=== PATIENT | male | born 1955 | race Caucasian/White ===

== ENCOUNTER 2021-01-03 12:13 | Emergency (ER) | payer OTHER ==
[~2021-01-03] VITALS: Ht 172.7 cm; Wt 77.1 kg
[~2021-01-03 12:13] MED LIST: ACET500 PO; Augmentin 875-1 EACH PO; CENTRUM SILVER1 EAC2 PO; DOXY100 PO; HYDR1TAB94 PO; METO25 PO
[2021-01-03 12:46] LABS: BASOPHILS ABSOLUTE AUTO 0.08 K/mm3 (0.00-0.23); BASOPHILS PERCENT AUTO 1 % (0-2); EOSINOPHILS ABSOLUTE AUTO 0.15 K/mm3 (0.00-0.68); EOSINOPHILS PERCENT AUTO 1 % (0-6); Hematocrit 39.2 % (37.0-53.0); Hemoglobin 13.1 g/dL (13.5-17.5); IMMATURE GRAN ABSOLUTE AUTO 0.05 K/mm3 (0.00-0.10); IMMATURE GRAN PERCENT AUTO 0 % (0-1); LYMPHOCYTES ABSOLUTE AUTO 2.78 K/mm3 (0.84-5.20); LYMPHOCYTES PERCENT AUTO 18 % (21-46); MONOCYTES ABSOLUTE AUTO 1.31 K/mm3 (0.16-1.47); MONOCYTES PERCENT AUTO 8 % (4-13); Mean Corpuscular HGB 30.4 pg (26.0-34.0); Mean Corpuscular HGB Conc 33.4 g/dL (31.5-36.5); Mean Corpuscular Volume 91 fL (80-100); Mean Platelet Volume 9.5 fL (9.1-12.4); NEUTROPHILS ABSOLUTE AUTO 11.19 K/mm3 (1.96-9.15); NEUTROPHILS PERCENT AUTO 72 % (41-73); Platelet Count 248 K/mm3 (150-400); RDW Coefficient Variation 13.2 % (11.7-14.2); RDW Standard Deviation 44.2 fL (35.1-46.3); Red Blood Cell Count 4.31 M/mm3 (4.30-5.90); White Blood Cell Count 15.56 K/mm3 (4.00-11.30)
[2021-01-03 13:04] LABS: Alanine Aminotransfer (ALT/SGP 45 U/L (12-78); Albumin, Blood 4.1 g/dL (3.4-5.0); Albumin/Globulin Ratio 0.9 (0.8-1.8); Alk Phos 133 U/L (50-136); Anion Gap 7 mmol/L (6-16); Aspartate Aminotrans (AST/SGOT 29 U/L (12-37); Bilirubin, Total 0.7 mg/dL (0.1-1.0); Blood Urea Nitrogen 25 mg/dL (8-24); Bun/Creatinine Ratio 21.6 (12.0-20.0); CO2, Blood 26 mmol/L (21-32); Calcium, Blood 9.3 mg/dL (8.5-10.1); Chloride, Blood 102 mmol/L (98-108); Creatinine, Blood 1.16 mg/dL (0.60-1.20); Globulin, Blood 4.7 g/dL (2.2-4.0); Glomerular Filtration Rate >60 (60-); Glucose, Blood 98 mg/dL (70-99); Potassium, Blood 3.6 mmol/L (3.5-5.5); Sodium, Blood 135 mmol/L (136-145); Total Protein, Blood 8.8 g/dL (6.4-8.2)
[2021-01-03] MEDS ORDERED: Lisinopril2.5 MG (14:41)
== END 2021-01-03 18:58 | disposition home or self-care (01) ==
LOC: ER 12:13
PROVIDERS: Emergency Medicine
DX: J98.11 Atelectasis (principal); F41.9 Anxiety disorder, unspecified; I10 Essential (primary) hypertension; Z86.73 Personal history of transient ischemic attack (TIA), and cerebral infarction without residual deficits; Z79.899 Other long term (current) drug therapy; Z87.891 Personal history of nicotine dependence
CPT/HCPCS: 36415; 71046; 71260; 80053; 84484; 85025; 93005; 93010; 99285-25; A9270; Q9967

== ENCOUNTER 2021-01-06 18:48 | Emergency (ER) | payer OTHER ==
[~2021-01-06] VITALS: Ht 170.2 cm; Wt 190.0 kg
[~2021-01-06 18:48] MED LIST changes: +Lisinopril2.5 MG
[2021-01-06] MEDS ORDERED: ARIP10 PO (19:42)
[2021-01-06] MEDS ORDERED: TRAZ50 PO (19:42)
== END 2021-01-06 20:34 | disposition home or self-care (01) ==
LOC: ER 18:48
DX: F41.0 Panic disorder [episodic paroxysmal anxiety] (principal); I10 Essential (primary) hypertension; Z79.899 Other long term (current) drug therapy; Z87.891 Personal history of nicotine dependence
CPT/HCPCS: 99283; A9270

== ENCOUNTER 2021-02-20 12:22 | Emergency (ER) | payer OTHER ==
[~2021-02-20] VITALS: Ht 175.3 cm; Wt 77.1 kg
[~2021-02-20 12:22] MED LIST changes: +ARIP10 PO; +TRAZ50 PO
== END 2021-02-20 16:04 | disposition home or self-care (01) ==
LOC: ER 12:22
DX: H57.89 Other specified disorders of eye and adnexa (principal); R20.8 Other disturbances of skin sensation; F31.9 Bipolar disorder, unspecified; I10 Essential (primary) hypertension; Z79.899 Other long term (current) drug therapy; Z87.891 Personal history of nicotine dependence
CPT/HCPCS: 99283

== ENCOUNTER 2021-05-03 14:59 | Emergency (ER) | payer OTHER ==
[~2021-05-03] VITALS: Ht 175.3 cm; Wt 77.1 kg
[2021-05-03 16:16] LABS: Alanine Aminotransfer (ALT/SGP 54 U/L (12-78); Albumin, Blood 3.7 g/dL (3.4-5.0); Albumin/Globulin Ratio 0.8 (0.8-1.8); Alk Phos 116 U/L (50-136); Anion Gap 7 mmol/L (6-16); Aspartate Aminotrans (AST/SGOT 35 U/L (12-37); Bilirubin, Total 0.7 mg/dL (0.1-1.0); Blood Urea Nitrogen 10 mg/dL (8-24); Bun/Creatinine Ratio 10.5 (12.0-20.0); CO2, Blood 26 mmol/L (21-32); Calcium, Blood 9.1 mg/dL (8.5-10.1); Chloride, Blood 109 mmol/L (98-108); Creatinine, Blood 0.96 mg/dL (0.60-1.20); Globulin, Blood 4.9 g/dL (2.2-4.0); Glomerular Filtration Rate >60 (60-); Glucose, Blood 106 mg/dL (70-99); Potassium, Blood 3.2 mmol/L (3.5-5.5); Sodium, Blood 142 mmol/L (136-145); Total Protein, Blood 8.6 g/dL (6.4-8.2); Troponin I <0.015 ng/mL (0.000-0.040)
== END 2021-05-03 20:27 | disposition left against medical advice (07) ==
LOC: ER 14:59
PROVIDERS: Physician Assistant
DX: R07.89 Other chest pain (principal); Z53.21 Procedure and treatment not carried out due to patient leaving prior to being seen by health care provider
CPT/HCPCS: 36415; 71046; 80053; 83690; 84484; 93005; 93010; 99284-25

== ENCOUNTER 2021-05-12 08:15 | Emergency (ER) | payer OTHER ==
[~2021-05-12] VITALS: Ht 167.6 cm; Wt 77.1 kg
[2021-05-12 09:19] LABS: BASOPHILS PERCENT AUTO 1 % (0-2); EOSINOPHILS ABSOLUTE AUTO 0.24 K/mm3 (0.00-0.68); EOSINOPHILS PERCENT AUTO 2 % (0-6); Hematocrit 40.7 % (37.0-53.0); Hemoglobin 13.8 g/dL (13.5-17.5); IMMATURE GRAN ABSOLUTE AUTO 0.04 K/mm3 (0.00-0.10); IMMATURE GRAN PERCENT AUTO 0 % (0-1); LYMPHOCYTES ABSOLUTE AUTO 2.58 K/mm3 (0.84-5.20); LYMPHOCYTES PERCENT AUTO 20 % (21-46); MONOCYTES ABSOLUTE AUTO 1.25 K/mm3 (0.16-1.47); MONOCYTES PERCENT AUTO 10 % (4-13); Mean Corpuscular HGB 31.4 pg (26.0-34.0); Mean Corpuscular HGB Conc 33.9 g/dL (31.5-36.5); Mean Corpuscular Volume 93 fL (80-100); Mean Platelet Volume 9.3 fL (9.1-12.4); NEUTROPHILS ABSOLUTE AUTO 8.82 K/mm3 (1.96-9.15); NEUTROPHILS PERCENT AUTO 68 % (41-73); Platelet Count 259 K/mm3 (150-400); RDW Coefficient Variation 14.2 % (11.7-14.2); RDW Standard Deviation 48.8 fL (35.1-46.3); Red Blood Cell Count 4.39 M/mm3 (4.30-5.90); White Blood Cell Count 13.03 K/mm3 (4.00-11.30)
[2021-05-12 09:30] LABS: Alanine Aminotransfer (ALT/SGP 44 U/L (12-78); Albumin, Blood 3.9 g/dL (3.4-5.0); Albumin/Globulin Ratio 0.9 (0.8-1.8); Alk Phos 98 U/L (50-136); Anion Gap 8 mmol/L (6-16); Aspartate Aminotrans (AST/SGOT 30 U/L (12-37); Blood Urea Nitrogen 15 mg/dL (8-24); Bun/Creatinine Ratio 14.2 (12.0-20.0); CO2, Blood 26 mmol/L (21-32); Calcium, Blood 9.5 mg/dL (8.5-10.1); Chloride, Blood 105 mmol/L (98-108); Creatinine, Blood 1.06 mg/dL (0.60-1.20); Globulin, Blood 4.4 g/dL (2.2-4.0); Glomerular Filtration Rate >60 (60-); Glucose, Blood 106 mg/dL (70-99); Potassium, Blood 3.4 mmol/L (3.5-5.5); Sodium, Blood 139 mmol/L (136-145); Total Protein, Blood 8.3 g/dL (6.4-8.2)
[2021-05-12 11:12] LABS: Source, Urine Clean Catch
[2021-05-12 11:25] LABS: Appearance, Urine Clear (Clear); Bilirubin, Urine Neg (Neg); Blood, Urine Neg (Neg); Color, Urine Yellow (P-Yellow); Glucose Qualitative, Urine Neg (Neg); Ketones, Urine 1+ (Neg); Leukocyte Esterase, Urine Neg (Neg); Nitrite, Urine Neg (Neg); Protein, Urine 2+ (Neg); Urobilinogen, Urine NORM (Normal)
[2021-05-12 11:44] LABS: Red Blood Cells, Urine 0-2 /hpf (0-2); White Blood Cells, Urine 0-2 /hpf (0-5)
[2021-05-12 11:45] LABS: Amorphous Light (0-Heavy); Bacteria Few /hpf; Hyaline Casts Rare /lpf (0-2); Squamous Epithelial Cells Few /hpf (Few)
[2021-05-12 11:46] LABS: Granular Casts Rare /lpf (0); Mucus Mod (0-Heavy)
[2021-05-12] MEDS ORDERED: DICY20 PO (11:48)
[2021-05-12] MEDS ORDERED: ONDA4ODT MM (11:49)
[2021-05-13] MEDS ORDERED: ONDA4ODT MM (09:42)
[2021-05-14] MEDS ORDERED: ACET500 PO (01:52)
== END 2021-05-12 12:11 | disposition home or self-care (01) ==
LOC: ER 08:15
PROVIDERS: Physician Assistant
DX: R10.9 Unspecified abdominal pain (principal); I10 Essential (primary) hypertension; Z79.899 Other long term (current) drug therapy; Z87.891 Personal history of nicotine dependence
CPT/HCPCS: 36415; 51701; 51798; 74176; 80053; 81001; 83690; 84484; 85025; 93005; 93010; 96375; 99285-25; J1170; J2405; J7030

== ENCOUNTER 2021-05-14 14:58 | Inpatient (IN) | payer OTHER ==
[~2021-05-14] VITALS: Ht 175.3 cm; Wt 72.6 kg
[~2021-05-14 14:58] MED LIST changes: +DICY20 PO; +ONDA4ODT MM
[2021-05-14] MEDS ORDERED: FAMO20 PO (15:07)
[2021-05-14] MEDS ORDERED: 1/2 NS 250ml250 ML ×2 (15:11→15:16)
[2021-05-14] MEDS ORDERED: THERA-D2000 UNIT PO (15:11)
[2021-05-14] MEDS ORDERED: ATOR20 PO (15:12)
[2021-05-14] MEDS ORDERED: LORA.5 PO (15:13)
[2021-05-14] MEDS ORDERED: SERT50 PO (15:14)
[2021-05-14] MEDS ORDERED: QUET25 (15:16)
[2021-05-14] MEDS ORDERED: AMLO10 PO (15:17)
[2021-05-14] MEDS ORDERED: CELE200 PO (15:18)
[2021-05-14] MEDS ORDERED: ABILIFY MYCITE PO (15:19)
[2021-05-14] MEDS ORDERED: VITAMIN B COMP0.4 MG PO (15:20)
[2021-05-14] MEDS ORDERED: METPRE4DP PO (15:30)
[2021-05-14 15:32] LABS: BASOPHILS ABSOLUTE AUTO 0.06 K/mm3 (0.00-0.23); BASOPHILS PERCENT AUTO 1 % (0-2); EOSINOPHILS ABSOLUTE AUTO 0.19 K/mm3 (0.00-0.68); EOSINOPHILS PERCENT AUTO 2 % (0-6); Hematocrit 40.1 % (37.0-53.0); Hemoglobin 13.5 g/dL (13.5-17.5); IMMATURE GRAN ABSOLUTE AUTO 0.02 K/mm3 (0.00-0.10); IMMATURE GRAN PERCENT AUTO 0 % (0-1); LYMPHOCYTES ABSOLUTE AUTO 1.81 K/mm3 (0.84-5.20); LYMPHOCYTES PERCENT AUTO 17 % (21-46); MONOCYTES ABSOLUTE AUTO 0.96 K/mm3 (0.16-1.47); MONOCYTES PERCENT AUTO 9 % (4-13); Mean Corpuscular HGB 31.5 pg (26.0-34.0); Mean Corpuscular HGB Conc 33.7 g/dL (31.5-36.5); Mean Corpuscular Volume 94 fL (80-100); Mean Platelet Volume 9.6 fL (9.1-12.4); NEUTROPHILS ABSOLUTE AUTO 7.63 K/mm3 (1.96-9.15); NEUTROPHILS PERCENT AUTO 71 % (41-73); Platelet Count 257 K/mm3 (150-400); RDW Coefficient Variation 14.2 % (11.7-14.2); Red Blood Cell Count 4.29 M/mm3 (4.30-5.90); White Blood Cell Count 10.67 K/mm3 (4.00-11.30)
[2021-05-14 15:48] LABS: Alanine Aminotransfer (ALT/SGP 38 U/L (12-78); Albumin, Blood 3.5 g/dL (3.4-5.0); Albumin/Globulin Ratio 0.8 (0.8-1.8); Alk Phos 92 U/L (50-136); Anion Gap 5 mmol/L (6-16); Aspartate Aminotrans (AST/SGOT 33 U/L (12-37); Bilirubin, Total 0.9 mg/dL (0.1-1.0); Blood Urea Nitrogen 8 mg/dL (8-24); Bun/Creatinine Ratio 8.3 (12.0-20.0); CO2, Blood 27 mmol/L (21-32); Chloride, Blood 108 mmol/L (98-108); Creatinine, Blood 0.96 mg/dL (0.60-1.20); Globulin, Blood 4.2 g/dL (2.2-4.0); Glomerular Filtration Rate >60 (60-); Glucose, Blood 151 mg/dL (70-99); Salicylate <1.7 mg/dL (2.8-20.0); Sodium, Blood 140 mmol/L (136-145); Total Protein, Blood 7.7 g/dL (6.4-8.2)
[2021-05-14 16:02] LABS: Acetaminophen, Random <2.0 ug/mL (10.0-30.0)
[2021-05-14 17:25] LABS: SARS-Cov-2 (COVID-19) PCR, MMC NEGATIVE (NEGATIVE)
--- NOTE | 2021-05-14 19:40 | NUR ---
PT UP TO ICUW 16 VIA STRETCHER FROM ED. ACCOMPANIED BY ED RN. PT TX TO UNIT BED. BED BATH PERFORMED AT THIS TIME. PT PLACED IN BRIEF D/T INCONTINENCE. PLACED ON ALL BEDSIDE MONITORS. PT DROWSY, ORIENTED TO PERSON, PLACE, SITUATION. BED IN LOWEST POSITION. BED ALARM ACTIVE. SEE [employer] FOR DETAILED ASSESSMENT.
--- NOTE | 2021-05-14 21:15 | NUR ---
PT C/O HEADACHE. 7 OUT OF 10 ON A 0-10 SCALE. PAIN UNRELIEVED WITH TYLENOL. DR. COLUMBA LAONSO, NEW ORDER RECIEVED FOR IBUPROFEN.
--- NOTE | 2021-05-14 23:28 | NUR ---
PT ON REMOTE MONITORING CAMERA. VISUALIZATION CONFIRMED ON MONITOR.
[2021-05-15 03:51] LABS: Hematocrit 36.8 % (37.0-53.0); Hemoglobin 12.5 g/dL (13.5-17.5); Mean Corpuscular HGB 31.8 pg (26.0-34.0); Mean Corpuscular Volume 94 fL (80-100); Platelet Count 255 K/mm3 (150-400); RDW Coefficient Variation 14.4 % (11.7-14.2); RDW Standard Deviation 49.7 fL (35.1-46.3); Red Blood Cell Count 3.93 M/mm3 (4.30-5.90); White Blood Cell Count 10.04 K/mm3 (4.00-11.30)
[2021-05-15 04:13] LABS: Alanine Aminotransfer (ALT/SGP 31 U/L (12-78); Albumin/Globulin Ratio 0.8 (0.8-1.8); Alk Phos 82 U/L (50-136); Anion Gap 6 mmol/L (6-16); Aspartate Aminotrans (AST/SGOT 27 U/L (12-37); Bilirubin, Total 0.6 mg/dL (0.1-1.0); Blood Urea Nitrogen 8 mg/dL (8-24); Bun/Creatinine Ratio 8.2 (12.0-20.0); CO2, Blood 25 mmol/L (21-32); Calcium, Blood 8.6 mg/dL (8.5-10.1); Chloride, Blood 112 mmol/L (98-108); Creatinine, Blood 0.98 mg/dL (0.60-1.20); Globulin, Blood 3.8 g/dL (2.2-4.0); Glomerular Filtration Rate >60 (60-); Glucose, Blood 107 mg/dL (70-99); Sodium, Blood 143 mmol/L (136-145); Total Protein, Blood 6.8 g/dL (6.4-8.2)
--- NOTE | 2021-05-15 08:00 | NUR ---
ASSUMED PT CARE REPORT FROM SUN MINOR AT 0700, ASSUMED PT CARE. PT ALERT AND ORIENTED X2. CONFUSED TO TIME AND SITUATION. ANSWERS QUESTIONS APPROPRIATELY, SLOWLY. PT STUTTERS SOME. PT C/O CONSTANTLY ABOUT HIS HEAD HURTING DESPITE MEDICATIONS AND NONPHARMACOLOGICAL EFFORTS. PT LUNG SOUNDS DIMINISHED, SATS >92% ON RA. SINUS RHYTHM ON MONITOR. BP STABLE. PT DENIES N/V. OLD SCARRING TO ABD FROM SOME SURGERY DONE IN [place] PER PT. BOWEL SOUNDS ACTIVE. VOIDING PER URINAL, CLEAR YELLOW. STARTING ON BOWEL CARE TODAY. DENIES BEING SUICIDAL. CALL LIGHT IN REACH. SEE FULL SHIFT ASSESSMENT.
--- NOTE | 2021-05-15 15:54 | NUR ---
Spiritual care visit attempted. Upon receiving a referral for spiritual care, I visit patient. Patient is very groggy and asks if I could back another time. I will continue to remain available to patient and family.
--- NOTE | 2021-05-15 18:38 | NUR ---
SHIFT SUMMARY PT REMAINS ON 2MD HOLD AND CONTINUOUS VIDEO MONITORING. PT ANXIOUS MOST OF THE TIME AND CONSTANTLY COMPLAINS ABOUT HEADACHE (WHILE AWAKE). PT ALERT TO PLACE AND PERSON. TALKS ABOUT HOW HE DOESNT WANT TO GO BACK TO HIS APARTMENT, PT CALLS IT [facility]. PT C/O ABOUT HE CANT TAKE CARE OF HIMSELF AND THAT HE WANTS TO BE . STATES HE WONT ATTEMPT WHILE IN HOSPITAL BUT MIGHT IF HE WAS SENT HOME. NO ACTIVE PLAN. PT HAS GENERALIZED WEAKNESS. ABLE TO FEED HIMSELF, USE URINAL AND GET DRINKS FROM CUPS. USES CALL LIGHT SOMETIMES. TYPICALLY YELLS FOR "NURSE". PT ANSWERS QUESTIONS AND ABLE TO COMMUNICATE MOST NEEDS. UP IN CHAIR FOR MOST OF SHIFT. SEEMS MORE COMFORTABLE. LUNG SOUNDS CLEAR/DIMINISHED. SATS >92% ON RA. SBP WNL. HR SR ON MONITOR. WILL REPORT TO ONCOMING SHIFT.
[2021-05-16 04:13] LABS: BASOPHILS ABSOLUTE AUTO 0.07 K/mm3 (0.00-0.23); BASOPHILS PERCENT AUTO 1 % (0-2); EOSINOPHILS ABSOLUTE AUTO 0.37 K/mm3 (0.00-0.68); EOSINOPHILS PERCENT AUTO 4 % (0-6); Hemoglobin 13.1 g/dL (13.5-17.5); IMMATURE GRAN ABSOLUTE AUTO 0.03 K/mm3 (0.00-0.10); IMMATURE GRAN PERCENT AUTO 0 % (0-1); LYMPHOCYTES ABSOLUTE AUTO 2.87 K/mm3 (0.84-5.20); LYMPHOCYTES PERCENT AUTO 27 % (21-46); MONOCYTES ABSOLUTE AUTO 0.93 K/mm3 (0.16-1.47); MONOCYTES PERCENT AUTO 9 % (4-13); Mean Corpuscular HGB 31.9 pg (26.0-34.0); Mean Corpuscular HGB Conc 33.6 g/dL (31.5-36.5); Mean Corpuscular Volume 95 fL (80-100); Mean Platelet Volume 9.6 fL (9.1-12.4); NEUTROPHILS ABSOLUTE AUTO 6.28 K/mm3 (1.96-9.15); NEUTROPHILS PERCENT AUTO 60 % (41-73); Platelet Count 238 K/mm3 (150-400); RDW Coefficient Variation 14.8 % (11.7-14.2); RDW Standard Deviation 51.6 fL (35.1-46.3); Red Blood Cell Count 4.11 M/mm3 (4.30-5.90); White Blood Cell Count 10.55 K/mm3 (4.00-11.30)
[2021-05-16 04:30] LABS: Anion Gap 6 mmol/L (6-16); Blood Urea Nitrogen 8 mg/dL (8-24); Bun/Creatinine Ratio 8.3 (12.0-20.0); CO2, Blood 22 mmol/L (21-32); Calcium, Blood 8.7 mg/dL (8.5-10.1); Chloride, Blood 112 mmol/L (98-108); Creatinine, Blood 0.97 mg/dL (0.60-1.20); Glomerular Filtration Rate >60 (60-); Glucose, Blood 88 mg/dL (70-99); Phosphorus, Blood 2.3 mg/dL (2.5-4.9); Potassium, Blood 3.2 mmol/L (3.5-5.5); Sodium, Blood 140 mmol/L (136-145)
--- NOTE | 2021-05-16 07:25 | NUR ---
ASSUMED CARE: PT RESTING QUIETLY AT THIS TIME. LOW SI RISK PER ORDERS. SINUS TACH ON TELE AT 101. NO ACUTE NEEDS OR CONCERNS AT THIS TIME.
--- NOTE | 2021-05-16 07:54 | NUR ---
PT STATES HE IS A BALL OF NERVES. STATES HE WANTS TO BUT HAS NO PLAN TO HOW TO DO THIS. ATTEMPTS TO SOOTHE AND PROVIDE COMFORT BUT PT'S THINKING IS VERY CONCRETE. CONTINUES TO STATE HE IS ANXIOUS. WILL PROVIDE WITH SCHEDULED MEDS WHEN AVAILABLE.
--- NOTE | 2021-05-16 08:28 | NUR ---
Request to complete Suicide Safety Plan is deferred at this time. Order for transfer to higher level of care for psychiatric inpatient hospitalization in medical record from psychiatrist. Chelsie Wise M.Ed., [facility]
--- NOTE | 2021-05-16 11:44 | NUR ---
A [employer]OL TUTOR FROM [facility] (DIONNE) AND A WORKER FROM [employer] (LEXI), CALLED TO GET UPDATES ON PT. NUMBERS RELAYED TO MILY WESLEYST[employer] FABRICATOR, IN ORDER TO COORDINATE CARE AND ANSWER QUESTIONS
--- NOTE | 2021-05-16 15:45 | NUR ---
PT CALLS FOR STAFF IN ROOM AND STATES HE IS A BUNDLE OF NERVES. STATES HE THINKS HE'S HAVING A PANIC ATTACK. ASKED HIM IF HE WAS HAVING THOUGHTS OF HARMINIG HIMSELF AND STATES HE WISHES HE COULD BUT HAS NO WAY TO DO IT AND DOESN'T HAVE A PLAN TO DO IT. PHYSICAL THERAPIST ON WAY TO ROOM AT THIS TIME
--- NOTE | 2021-05-16 18:31 | NUR ---
SHIFT SUMMARY: PT HAS REMAINED LOW S.I. RISK THIS SHIFT. CONTINUES TO SAY HE WANTS TO BUT DOES NOT HAVE A PLAN IN PLACE. DR OLIVEIRA CAME TO SEE PT AND PLAN IS FOR DC TO FACILITY PER DC PLANNING. PT IS ANXIOUS AT TIMES BUT NO ACUTE CHANGES THIS SHIFT
--- NOTE | 2021-05-17 05:20 | NUR ---
SHIFT SUMMARY PT ADMITTED ON 05/14 FOR SI. TOOK A HANDFUL OF PILLS. A&OX4 WITH INTERMITTENT CONFUSION. PT IS ON RA. PT IS ON 2 MD HOLD. PT IS A 1 PERSON ASSIST. ADLS PROVIDED, SAFETY MEASURES IN PLACE. WILL CONTINUE TO MONITOR.
--- NOTE | 2021-05-17 16:56 | NUR ---
PATIENT ALERT AND ORIENTED; SPEECH IS SLURRED AND DIFFICLT TO UNDERSTAND. PATIENT CALLS OUT FREQUENTLY FOR STAFF BUT DOESN'T SEEM TO KNOW WHAT IT IS HE IS WANTING. PATIENT TOOK A NAP JUST PRIOR TO LUNCH TODAY AND WAS AWOKEN BY THERAPY AND BECAME VERY UPSET THAT HE WAS WOKE UP. DR OLIVEIRA ASSESSED THE PATIENT THIS AFTERNOON AND DISCONTINUED SI PRECAUTIONS. PATIENT IS CURRENTLY RESTING IN BED QUIETLY. CALL LIGHT WITHIN REACH.
--- NOTE | 2021-05-18 06:35 | NUR ---
SHIFT SUMMARY PT IS A&OX3. ABLE TO MAKE NEEDS KNOWN. FREQUENTLY YELLS OUT FOR NURSE. NO ACUTE CHANGES ON THIS SHIFT. PT SLEPT MOST OF THE NIGHT. ADLS PROVIDED, SAFETY MEASURES IN PLACE. SI PRECAUTIONS DISCONTINUED. WILL CONTINUE TO MONITOR.
[2021-05-18 11:39] LABS: SARS-Cov-2 (COVID-19) PCR, MMC NEGATIVE (NEGATIVE)
--- NOTE | 2021-05-18 17:41 | NUR ---
pt has been quite pleasant today. no c/o pain. we were planning d/c [facility] to [facility] today between noon and 3. this changed to tomorrow. expecting to transport out at 8am tomorrow. surya chu to call report and set up transportation shortly after [facility]. no new concerns today.. bed in low position, call lite in reach, bed alarm on for safety
--- NOTE | 2021-05-19 04:55 | NUR ---
MANAGER OF INTERNAL AUDIT SUMMARY PT A/O X4. SLEPT WELL TONIGHT, USES CALL LIGHT APPROPRIATELY. ROOM AIR, VITALS STABLE. PLAN TO TRANSFER TO [facility] TODAY. CIWAS ARE STABLE. NO ACUTE CHANGES, BED ALRM ON, WILL CONTINUE TO MONITOR.
--- NOTE | 2021-05-19 05:36 | NUR ---
TRANSPORTATION SET UP WITH [facility] FOR TRANSFER TO [facility] AT 0800.
--- NOTE | 2021-05-19 07:48 | NUR ---
PT AWAKE ORIENTED X3 PLEASANT. H/R REG, NO MURMER NOTED. PER TELE NSR AT 80'S. LUNGS CLEAR, RESP EASY, UNLABORED ON R.A. BT X4 LAST BM 2 DAYS . VOIDS URINAL AND OCC INCONT. IN ATTENDS. 1 ASST BSC. BED IN LOW POSITION, CALL LITE IN REACH, BED ALARM ON FOR SAFETY. PT NOT VERBALIZING DESIRE TO HARM SELF TO ME AT THIS TIME. PENDING TRANSPORT TO [facility]. TELE REMMOVED. LEAVING IV INTACT.
--- NOTE | 2021-05-19 08:34 | NUR ---
REPORT CALLED TO JOZEF MINOR IN [facility] [facility] IN [facility]. SHE REQUESTED WE REMOVE IV. DONE. TRANSPORT HERE AT 0830. TOOK PT. PT HAS PERSONAL PRESCRIPTIONS IN BAG. ITEMIZED AND VERIFIED BY SELF AN [employer] MINOR. SEALED IN BAG. SIGNED RECEIPT BY TRANSPORT
[2021-05-19 08:48] LABS: U Amphetamine Screen Not Detected; U Barbituate Screen Not Detected; U Benzodiazapine Screen Not Detected; U Cannabinoids Screen DETECTED; U Cocaine Screen Not Detected; U Methadone Screen Not Detected; U Methamphetamine Screen Not Detected; U Opiates Screen Not Detected; U Phencyclidine Screen Not Detected
[2021-05-19 08:49] LABS: U Buprenorphine Screen Not Detected; U Oxycodone Screen Not Detected; U Propoxyphene Screen Not Detected
== END 2021-05-19 08:32 | DRG 918 ==
LOC: ER 14:58 → ICUW 17:26 → MEDS 05-16 22:00
PROVIDERS: Emergency Medicine; Family Medicine; ADMIT Internal Medicine
DX: T50.912A Poisoning by multiple unspecified drugs, medicaments and biological substances, intentional self-harm, initial encounter (principal); Z20.822 Contact with and (suspected) exposure to COVID-19; I95.9 Hypotension, unspecified; E83.39 Other disorders of phosphorus metabolism; E87.6 Hypokalemia; R51.9 Headache, unspecified; F10.10 Alcohol abuse, uncomplicated; D64.9 Anemia, unspecified; K59.00 Constipation, unspecified; F31.9 Bipolar disorder, unspecified; F12.10 Cannabis abuse, uncomplicated; F15.10 Other stimulant abuse, uncomplicated; F19.10 Other psychoactive substance abuse, uncomplicated; F41.9 Anxiety disorder, unspecified; I10 Essential (primary) hypertension; Z98.890 Other specified postprocedural states; Z79.899 Other long term (current) drug therapy; Z90.49 Acquired absence of other specified parts of digestive tract; Z87.891 Personal history of nicotine dependence
CPT/HCPCS: 36415; 80053; 80069; 84132; 85025; 85027; 93005; 93010; 97110; 97116; 97161; 97166; 97530; 97535; 99285-25; A9270; G0480; J1650; J3480; J7030; U0004